=== PATIENT | male | born 1965 | race Two or more races ===

== ENCOUNTER 2024-11-07 07:32 | Emergency (ER) | payer MEDICAID, SELFPAY ==
[2024-11-07 07:35] VITALS: BP 124/82; PULSE 93; RESP 18; TEMP 36.4; O2SAT 96
[2024-11-07 07:37] VITALS: BMI 43.2
[2024-11-07 07:59] VITALS: BP 118/74; PULSE 61; RESP 16; O2SAT 95
[2024-11-07 08:05] VITALS: PULSE 72; RESP 17; O2SAT 93
--- NOTE | 2024-11-07 08:21 | XR_ITS ---
Examination: Abdomen sonogram, Limited Date and time of exam: November 07, 2024 0839 hours INDICATIONS: Upper abdominal pain with nausea vomiting beginning last night Technique: Real-time olmstead scale transabdominal sonographic images of the upper abdomen obtained. Findings: 24 mm stone in the gallbladder neck Gallbladder wall 0.3 cm no edema Common bile duct 0.5 cm Pancreas obscured by bowel gas Liver 16.5 cm fatty infiltration irregular contour Normal hepatopedal portal venous flow Patent IVC IMPRESSION: Cholelithiasis, negative for cholecystitis Mild hepatomegaly fatty liver primary hepatocellular disease
--- NOTE | 2024-11-07 08:21 | XR_ITS ---
Examination: CT abdomen and pelvis without contrast. Coronal 3-D reconstructions. Sagittal 2-D reconstructions. Date and time of exam:August 07, 2025 0831 hours INDICATIONS: Right-sided abdominal pain beginning today CTDI: vol (mGy): 16.8 DLP: (mGycm): 1213 Technique: Axial images of the abdomen have been obtained, 3 mm slice thickness Intravenous contrast material has not been administered. Low dose protocols were performed. One or more of the following dose reduction techniques were used; automated exposure control, adjustment of the mA and/or KV according to patient size, use of iterative reconstruction technique. Findings: Diffuse fatty infiltration throughout the liver, multiple gallstones Gallbladder wall appears mildly thickened Spleen is not enlarged No pancreatic or adrenal mass 5 cm left renal cyst No renal or ureteral calculi, no hydronephrosis Normal appendix No bowel obstruction Colonic diverticulosis Bladder intact Transverse prostate dimension 5 cm Moderate osteopenia IMPRESSION: Fatty liver Cholelithiasis, recommend gallbladder sonography follow-up to exclude cholecystitis
--- NOTE | 2024-11-07 08:21 | XR_ITS ---
Examination: PA lateral chest 2 views TECHNIQUE: Upright PA lateral chest 2 views Exam date and time: November 07, 2024 0927 hours Comparison July 13, 2023 INDICATIONS: Right-sided chest pain today FINDINGS: Normal heart size Poor inspiration No lobar pneumonia or pulmonary edema IMPRESSION: Poor inspiratory effort chest x-ray
--- NOTE | 2024-11-07 08:22 | PD.EDRME ---
Rapid Medical Screening Exam RME Arrival date/time: 11/07/24 07:32 59-year-old male presents to the emergency department today via EMS patient reports abdominal pain, cough and congestion patient reports constipation and currently on antibiotics for the flu Chief Complaint: Abdominal Pain Vital signs: Vital Signs Temperature 97.5 F 11/07/24 07:35 Pulse Rate 93 11/07/24 07:35 Respiratory Rate 18 11/07/24 07:35 Blood Pressure 124/82 11/07/24 07:35 Pulse Oximetry (%) 96 11/07/24 07:35 Oxygen Delivery Method Room Air 11/07/24 07:35
[2024-11-07 09:35] LABS: Basophils # (Auto) 0.1 Thou/mm3 (0.0-0.2); Basophils % (Auto) 0 % (0-2.5); Eosinophils % (Auto) 0 % (0-10); Hematocrit 40.4 % (41.0-53.0); Hemoglobin 13.6 g/dL (13.5-16.0); Immature Granulocytes % (Auto) 0 % (0-0); Immature Granulocytes Auto 0.05 Thou/mm3 (0.00-0.00); Lymphocytes # (Auto) 0.7 Thou/mm3 (1.0-4.8); Lymphocytes % (Auto) 5 % (10-50); Mean Corpuscular HGB Conc 33.7 g/dl (31.0-37.0); Mean Corpuscular Hemoglobin 28.5 pg (25.0-35.0); Mean Corpuscular Volume 85 fL (80-100); Monocytes # (Auto) 0.6 Thou/mm3 (0.0-0.8); Monocytes % (Auto) 4 % (0-12); Neutrophils # (Auto) 12.1 Thou/mm3 (1.8-7.7); Neutrophils % (Auto) 90 % (37-80); Nucleated Red Blood Cell % 0 /100 WBC (0); Platelet Count 277 Thou/mm3 (140-440); RDW Standard Deviation 41.4 fL (35.1-43.9); Red Blood Count 4.77 Miln/mm3 (4.50-5.90); White Blood Count 13.5 Thou/mm3 (3.8-10.6)
[2024-11-07 09:57] LABS: Alanine Aminotransferase 29 U/L (10-49); Albumin, Serum 4.3 gm/dL (3.4-4.8); Albumin/Globulin Ratio 1.3 (1.2-2.2); Alkaline Phosphatase 104 U/L (46-116); Anion Gap 9 (7-16); Aspartate Amino Transferase 21 U/L (0-34); BUN/Creatinine Ratio 16 Ratio (12-20); Bilirubin,Total 0.4 mg/dL (0.3-1.2); Blood Urea Nitrogen 19 mg/dL (9-23); Calcium 9.7 mg/dL (8.3-10.6); Calcium (Corrected) 9.7 mg/dL (8.5-10.1); Carbon Dioxide 31.1 mMol/L (20.0-31.0); Chloride 101 mMol/L (98-107); Creatinine (Component) 1.2 mg/dL (0.6-1.3); Estimated Creatinine Clearance 76.9 mL/min (>60); Globulin 3.3 gm/dL (2.3-3.5); Glucose 109 mg/dL (74-106); Lipase 62 U/L (12-53); Osmolality,Calculated 284 (275-295); Potassium 3.2 mMol/L (3.4-5.1); Sodium 141 mMol/L (136-145); Total Protein 7.6 gm/dL (5.7-8.2); eGFR > 60 See Note
[2024-11-07] MEDS: ONDANSETRON ODT 4 MG TABRAP PO (10:01)
[2024-11-07] MEDS: ACETAMINOPHEN 500 MG TABLET 1000 MG PO (10:02)
[2024-11-07 11:15] LABS: Collection Type, Urine Clean Catch
[2024-11-07 11:31] VITALS: BP 116/78; PULSE 71; RESP 16; TEMP 36.5; O2SAT 95
[2024-11-07 11:52] LABS: Bilirubin,Urine Negative (Negative); Blood,Urine Negative (Negative); Clarity,Urine Clear (Clear/Hazy); Color,Urine Yellow (Lt Yel-Yel); Culture Indicated,Urine Not Indicated; Glucose, Urine Negative (Negative); Ketones,Urine Trace (Negative); Leukocyte Esterase,Urine Positive (Negative); Nitrite,Urine Negative (Negative); Protein,Urine 1+ (Neg - Trace); RBC,Urine 1 /hpf (0-3); Specific Gravity,Urine 1.025 (1.001-1.035); Squamous Epithelial Cell,Urine < 1 /hpf (0-5); Urobilinogen,Urine Negative mg/dL (0.0-1.0); WBC,Urine 1 /hpf (0-5)
[2024-11-07 14:14] VITALS: BP 111/74; PULSE 82; RESP 18; TEMP 36.5; O2SAT 98
--- NOTE | 2024-11-07 14:15 | PD.EDADULT ---
ED General RME/HPI General Chief complaint: Abdominal Pain Stated complaint: ABDOMINAL PAIN Time Seen by Provider: 11/07/24 14:08 Arrival date/time: 11/07/24 07:32 CC: Right upper quadrant abdominal pain with congestion HPI ongoing for the past 2 days no prior history of similar events. The patient states over the past 2 months he has lost approximately 70 pounds as he needs to lose weight for hip replacement. Patient's states he also was on antibiotics for a flu , patient states antibiotics were prescribed when he did a phone triage for telemedicine. Patient currently denies nausea vomiting diarrhea the right upper quadrant pain is significantly diminished since waiting in the ER. Patient is awake alert and oriented denies any chest pain shortness of breath or difficulty breathing. RME / HPI RME / HPI narrative: 11/07/24 07:32 59-year-old male presents to the emergency department today via EMS patient reports abdominal pain, cough and congestion patient reports constipation and currently on antibiotics for the flu Related Data Home Medications ?Medication ?Instructions ?Recorded ?Confirmed albuterol sulfate 90 mcg/actuation 1 inh inhalation QID 06/27/24 07/11/24 aerosol inhaler amlodipine 10 mg tablet 10 mg PO QDAY 06/27/24 07/11/24 aspirin 81 mg tablet,delayed 81 mg PO QDAY 06/27/24 07/11/24 release (Adult Aspirin Regimen) atorvastatin 40 mg tablet 40 mg PO QDAY 06/27/24 07/11/24 ergocalciferol (vitamin D2) 400 10 mcg PO QDAY 06/27/24 07/11/24 unit capsule finerenone 10 mg tablet (Kerendia) 10 mg PO QDAY 06/27/24 07/11/24 hydrochlorothiazide 25 mg tablet 25 mg PO Q OTHER DAY 06/27/24 07/11/24 metformin 500 mg tablet 500 mg PO QDAY 06/27/24 07/11/24 terazosin 10 mg capsule 10 mg PO QDAY 06/27/24 07/11/24 Previous Rx's ?Medication ?Instructions ?Recorded albuterol sulfate 1.25 mg/3 mL 1.25 mg (3 mL) inhalation QID PRN 07/13/23 solution for nebulization shortness of breath or wheezing #75 mL dextromethorphan-guaifenesin 10 10 ml PO Q4H PRN cough #237 mL 07/13/23 mg-100 mg/5 mL oral syrup (Chest Congestion Relief DM) diphenhydramine HCl 25 mg capsule 50 mg (2 x 25 mg) PO Q6H PRN 07/08/24 (Benadryl) allergic reaction #30 caps hydrocortisone 2.5 % topical cream 1 applic topical BID PRN rash #28 07/08/24 grams polyethylene glycol 3350 17 4 g PO QDAY #119 grams 11/07/24 gram/dose oral powder (Miralax) Allergies Allergy/AdvReac Type Severity Reaction Status Date / Time No Known Allergies Allergy Verified 11/07/24 08:10 Review of Systems Review of Systems Narrative Review of Systems: GEN: No fever, no chills, no weight loss EYES: No discharge, no visual changes, no pain HEENT: No ear pain, no congestion, no sore throat PULM: No shortness of breath, no cough, no congestion CV: No chest pain, no dyspnea on exertion, no palpitations GI: No nausea, no vomiting, no diarrhea, + pain, no constipation : No frequency, no urgency, no dysuria MUSC/SKEL: No joint pain, no back pain SKIN: No rash PSYCH: No hallucinations, no depression HEME/LYMPH: No easy bleeding or bruising tendencies NEURO: No weakness, no headache ED Exam Narrative Physical exam: [General: Obese not in any acute distress Head normocephalic HEENT: Within acceptable limits Neck is supple nontender Chest equal chest rise nontender to palpation Respiratory: Clear to auscultation no wheezes crackles or rubs CV: Rate rhythm is regular no murmurs rubs or clicks Abdomen is distended secondary to body habitus soft nontender no masses positive bowel sounds all 4 quadrants Back: No CVA tenderness no spinous process tenderness from cervical spine thoracic and lumbar spine Skin: Intact no petechiae rash induration ulceration or crepitus Extremities: Moving all extremity against resistance cap refill less than 2 seconds neurosensory intact Neuro: Awake alert oriented x3 Glascow coma 15 no focal deficits] Course Quality Measures none Orders Category Date Time Status CT abdomen pelvis wo con Stat Exams 11/07/24 08:21 Completed US gall bladder Stat Exams 11/07/24 08:21 Completed XR chest 2V Stat Exams 11/07/24 08:21 Completed CBC Stat Lab 11/07/24 09:20 Completed Comprehensive Metabolic Panel Stat Lab 11/07/24 09:20 Completed Lipase Stat Lab 11/07/24 09:20 Completed UA, C/S IF [Urinalysis, C/S if Indicated] Stat Lab 11/07/24 11:07 Completed Acetaminophen Tab [Tylenol ES Tab] Med 11/07/24 08:21 Discontinued 1,000 mg PO X1 ONE Ondansetron Odt [Zofran Odt] Med 11/07/24 08:21 Discontinued 4 mg PO X1 ONE Vital Signs Vital signs: Vital Signs Temperature 97.5 F 11/07/24 07:35 Pulse Rate 93 11/07/24 07:35 Respiratory Rate 18 11/07/24 07:35 Blood Pressure 124/82 11/07/24 07:35 Pulse Oximetry (%) 96 11/07/24 07:35 Oxygen Delivery Method Room Air 11/07/24 07:35 [facility] Patient data External records reviewed:: [facility] previous records Clinical information provided by:: patient Social determinants that could affect healthcare access:: none Patient has the following chronic illnesses:: Obesity diabetes hypertension How is presenting disease/condition affected by chronic disease/condition?: uneffected by Evaluation data The following diagnostics were reviewed and interpreted by me:: lab results and radiology exam(s) Lab and/or radiology exams considered but not ordered:: CBC shows mild leukocytosis of 13.5. No anemia or thrombocytopenia CMP shows a potassium of 3.2 CO2 of 31.1 no other electrolyte imbalances other than a glucose of 109 no renal impairment or transaminitis or T. bili elevation. Lipase is 62 Urine is negative for urinary tract infection CT of the abdomen pelvis shows gallstones without any other acute finding Ultrasound shows gallstones without cholecystitis. Interpretation Summary: Patient also complained of constipation at this time the patient is no acute finding requires emergent or immediate intervention. Patient is to return the emergency room if there is worsening of symptoms otherwise follow-up with his primary care provider. Medications Medications considered but not ordered:: None Medication administrations:: Medication Administration History Discontinued Medications Acetaminophen (Acetaminophen 500 Mg Tablet) 1,000 mg PO X1 ONE Stop: 11/07/24 08:22 Last Admin: 11/07/24 10:02 Dose: 1,000 mg Documented By: ED Ondansetron HCl (Ondansetron Odt 4 Mg Tabrap) 4 mg PO X1 ONE; Protocol Stop: 11/07/24 08:22 Last Admin: 11/07/24 10:01 Dose: 4 mg Documented By: ED None Consultations Consultation(s) initiated? (list below): No Diagnosis Differential Diagnosis ED Complaint MDM: Cholelithiasis cholecystitis choledocholithiasis Most likely diagnosis given after review of the tests above:: Cholelithiasis Admission Indicated Admission indicated?: not indicated Explain why admission is indicated or not indicated:: Stable for outpatient follow-up Admission Request Was there a request for admission?: No Disposition Plan Disposition Plan: Discharge Discharge Attestation Discharge Attestation: The patient and all family members were given an opportunity to ask questions and understood the discharge instructions. Discharge instructions specifically effects, indications for sooner follow up or return to the emergency department, and the expected course of current diagnosis. Patient condition: Stable Medical Decision Making Differential Diagnosis Differential Diagnosis: Cholelithiasis cholecystitis choledocholithiasis Lab Data 11/07/24 09:20 11/07/24 09:20 Labs: Lab Results 11/07/24 11/07/24 Range/Units 09:20 11:07 WBC 13.5 H (3.8-10.6) Thou/mm3 RBC 4.77 (4.50-5.90) Miln/mm3 Hgb 13.6 (13.5-16.0) g/dL Hct 40.4 L (41.0-53.0) % MCV 85 (80-100) fL MCH 28.5 (25.0-35.0) pg MCHC 33.7 (31.0-37.0) g/dl RDW Std Deviation 41.4 (35.1-43.9) fL Plt Count 277 (140-440) Thou/mm3 Neut % (Auto) 90 H (37-80) % Lymph % (Auto) 5 L (10-50) % [place] % (Auto) 4 (0-12) % Eos % (Auto) 0 (0-10) % Baso % (Auto) 0 (0-2.5) % Neut # (Auto) 12.1 H (1.8-7.7) Thou/mm3 Lymph # (Auto) 0.7 L (1.0-4.8) Thou/mm3 [place] # (Auto) 0.6 (0.0-0.8) Thou/mm3 Eos # (Auto) 0.0 (0.0-0.5) Thou/mm3 Baso # (Auto) 0.1 (0.0-0.2) Thou/mm3 Immature Gran # (Auto) 0.05 H (0.00-0.00) Thou/mm3 Absolute Nucleated RBC 0.00 (0.00-0.00) Thou/mm3 Immature Gran % 0 (0-0) % Nucleated RBC % 0 (0) /100 WBC Sodium 141 (136-145) mMol/L Potassium 3.2 L (3.4-5.1) mMol/L Chloride 101 (98-107) mMol/L Carbon Dioxide 31.1 H (20.0-31.0) mMol/L Anion Gap 9 (7-16) BUN 19 (9-23) mg/dL Creatinine 1.2 (0.6-1.3) mg/dL Estim Creat Clear Calc 76.9 (>60) mL/min eGFR > 60 (60 - ) See Note BUN/Creatinine Ratio 16 (12-20) Ratio Glucose 109 H (74-106) mg/dL Calculated Osmolality 284 (275-295) Calcium 9.7 (8.3-10.6) mg/dL Corrected Calcium 9.7 (8.5-10.1) mg/dL Total Bilirubin 0.4 (0.3-1.2) mg/dL AST 21 (0-34) U/L ALT 29 (10-49) U/L Alkaline Phosphatase 104 (46-116) U/L Total Protein 7.6 (5.7-8.2) gm/dL Albumin 4.3 (3.4-4.8) gm/dL Globulin 3.3 (2.3-3.5) gm/dL Albumin/Globulin Ratio 1.3 (1.2-2.2) Lipase 62 H (12-53) U/L Ur Collection Type Clean Catch Urine Color Yellow (Lt Yel-Yel) Urine Clarity Clear (Clear/Hazy) Urine pH 7.0 (5.0-7.0) Ur Specific [place] 1.025 (1.001-1.035) Urine Protein 1+ A (Neg - Trace) Urine Glucose (UA) Negative (Negative) Urine Ketones Trace (Negative) Urine Blood Negative (Negative) Urine Nitrite Negative (Negative) Urine Bilirubin Negative (Negative) Urine Urobilinogen (Auto) Negative (0.0-1.0) mg/dL Ur Leukocyte Esterase Positive (Negative) Urine RBC 1 (0-3) /hpf Urine WBC 1 (0-5) /hpf Ur Squamous Epith Cells < 1 (0-5) /hpf Urine Bacteria None (None) Ur Culture Indicated? Not Indicated Discharge Plan Plan Patient Disposition: HOME (Self Care) Patient condition on transfer: Stable Prescriptions/Referrals Prescriptions/Med Rec: New polyethylene glycol 3350 [Miralax] 17 gram/dose powder 4 g PO QDAY Qty: 119 0RF No Action metformin 500 mg tablet 500 mg PO QDAY atorvastatin 40 mg tablet 40 mg PO QDAY aspirin [Adult Aspirin Regimen] 81 mg tablet,delayed release (DR/EC) 81 mg PO QDAY amlodipine 10 mg tablet 10 mg PO QDAY ergocalciferol (vitamin D2) 400 unit capsule 10 mcg PO QDAY Kerendia 10 mg tablet 10 mg PO QDAY terazosin 10 mg capsule 10 mg PO QDAY hydrochlorothiazide 25 mg tablet 25 mg PO Q OTHER DAY albuterol sulfate 90 mcg/actuation HFA aerosol inhaler 1 inh inhalation QID dextromethorphan-guaifenesin [Chest Congestion Relief DM] 10-100 mg/5 mL syrup 10 ml PO Q4H PRN (Reason: cough) Qty: 237 0RF albuterol sulfate 1.25 mg/3 mL solution for nebulization 1.25 mg inhalation QID PRN (Reason: shortness of breath or wheezing) Qty: 75 0RF hydrocortisone 2.5 % cream 1 applic topical BID PRN (Reason: rash) Qty: 28 0RF diphenhydramine HCl [Benadryl] 25 mg capsule 50 mg PO Q6H PRN (Reason: allergic reaction) Qty: 30 0RF Referrals: Clifford Smith MD [Physician] - In 1 week No Primary/Family,Physician [Primary Care Provider] - In 1 week Problem List Clinical Impression: Cholelithiasis, Constipation Patient/Caregiver Discharge Instructions Print Language: Malay Stand Alone Forms: Renae Award Info., Patient Portal Info Letter
== END 2024-11-07 14:26 | disposition home or self-care (01) ==
PROVIDERS: Nurse Practitioner Primary Care; Emergency Provider Registered Nurse General Practice
DX: K59.00 Constipation, unspecified (principal); K80.20 Calculus of gallbladder without cholecystitis without obstruction; R05.9 Cough, unspecified
CPT/HCPCS: 36415; 71046; 74176; 76705; 80053; 81001; 83690; 85025; 99284; Q0162; A9270